=== PATIENT | female | born 1995 | race Caucasian/White ===

== ENCOUNTER 2017-06-13 06:35 | Day surgery (SDC) | payer OTHER ==
[2017-06-13] MEDS ORDERED: LIDOCAINE 1% 2 ML INJ ONE (07:02)
[2017-06-13 07:10] VITALS: PULSE 84
[2017-06-13] MEDS ORDERED: LIDOCAINE 1% 2 ML INJ ID PRN (07:34)
[2017-06-13] MEDS ORDERED: LR 1,000 ML IV ONE (07:34)
[2017-06-13] MEDS ORDERED: LIDOCAINE 1% 300 MG/30 ML SDV ONE (08:20)
--- NOTE | 2017-06-13 08:20 | PDANEPAE ---
ANE History of Present Illness hymenectomy ANE Past Medical History - Cardiovascular History Hx Hypertension: No Hx Arrhythmias: No Hx Chest Pain: No Hx Coronary Artery / Peripheral Vascular Disease: No Hx CHF / Valvular Disease: No Hx Palpitations: No Cardiovascular History Comment: occ "HR goes up when exercising, and won't come done" PCP aware - Pulmonary History Hx COPD: No Hx Asthma/Reactive Airway Disease: No Hx Recent Upper Respiratory Infection: No Hx Oxygen in Use at Home: No Hx Sleep Apnea: No Sleep Apnea Screening Result - Last Documented: Negative - Neurologic History Hx Cerebrovascular Accident: No Hx Seizures: No Hx Dementia: No - Endocrine History Hx Diabetes: No - Renal History Hx Renal Disorders: Yes Renal History Comment: "small bladder" - Liver History Hx Hepatic Disorders: No - Neurological & Psychiatric Hx Hx Neurological and Psychiatric Disorders: No - Cancer History Hx Cancer: No - Congenital Disorder History Hx Congenital Disorders: No - GI History Hx Gastrointestinal Disorders: No Gastrointestinal History Comment: dairy and gluten free diet - Other Health History Other Health History: "small opening to vagina" - Chronic Pain History Chronic Pain: No - Surgical History Prior Surgeries: growth tongue excised 2012 ANE Review of Systems Review of Systems: - Exercise capacity METS (RN): 4 METS ANE Patient History - Allergies Allergies/Adverse Reactions: gluten Allergy (Verified 05/21/17 14:06) Other-Enter Comments Milk Containing Products [dairy] Allergy (Verified 05/21/17 14:06) Other-Enter Comments - Home Medications Home Medications: NK [No Known Home Meds] 05/21/17 [Last Taken Unknown] - NPO status NPO Since - Liquids (Date): 06/12/17 NPO Since - Liquids (Time): 22:00 NPO Since - Solids (Date): 06/12/17 NPO Since - Solids (Time): 22:00 - Anes Hx Anes Hx: no prior problems - Smoking Hx Smoking Status: Never smoked - Alcohol Use Alcohol Use: Occasionally - Family Anes Hx Family Anes Hx: none ANE Labs/Vital Signs - Vital Signs Blood Pressure: 120/87 Heart Rate: 84 Respiratory Rate: 16 O2 Sat (%): 98 Height: 157.48 cm Weight: 49.895 kg ANE Physical Exam - Airway Neck exam: FROM Mallampati Score: Class 1 Mouth exam: normal dental/mouth exam - Pulmonary Pulmonary: clear to auscultation - Cardiovascular Cardiovascular: regular rate and rhythym - ASA Status ASA Status: I ANE Anesthesia Plan Anesthesia Plan: GA w LMA
[2017-06-13] MEDS ORDERED: MIDAZOLAM 2 MG/2 ML VIAL IVP ONE (08:21)
--- NOTE | 2017-06-13 08:26 | PDHPUP ---
History & Physical Update H&P update statement: This history and physical update is based on an assessment of the patient which was completed after admission or registration (within 24 hours), but prior to the surgery/procedure.
[2017-06-13] MEDS ORDERED: fentaNYL 100 MCG/2 ML INJ ONE (08:28)
[2017-06-13] MEDS ORDERED: PROPOFOL 200 MG/20 ML VIAL ONE (08:29)
[2017-06-13] MEDS ORDERED: DEXAMETHASONE 4 MG/ML VIAL ONE (08:29)
[2017-06-13] MEDS ORDERED: ONDANSETRON 4 MG/2 ML VIAL ONE (08:50)
[2017-06-13] MEDS ORDERED: KETOROLAC 30 MG/1 ML SDV ONE (08:55)
[2017-06-13] MEDS ORDERED: HYDROCODONE/APAP 5/325 TAB PO PRN (08:59)
[2017-06-13] MEDS ORDERED: OXYCODONE/APAP 5/325 TAB PO PRN (08:59)
[2017-06-13] MEDS ORDERED: ACETAMINOPHEN 500 MG TAB PO PRN (08:59)
[2017-06-13] MEDS ORDERED: fentaNYL 100 MCG/2 ML INJ IVP PRN (08:59)
[2017-06-13] MEDS ORDERED: NALOXONE HCL 0.4 MG/ML INJ IVP PRN (08:59)
[2017-06-13 09:44] VITALS: RESP 18; TEMP 97.7
--- NOTE | 2017-06-13 09:54 | POSTOPPROG ---
Post Op Note Date of Operation: 06/13/17 Surgeon: Keena Acharya Anesthesiologist: Kenrick Chang Anesthesia: LMA Pre-op Diagnosis: imperforate hymen Post-op Diagnosis: same Procedure: hymenectomy Findings: very narrow opening into vagina Inf/Abcess present in the surg proc area at time of surgery?: No EBL: Minimal
[2017-06-13 10:13] VITALS: BP 102/50; O2SAT 96
--- NOTE | 2017-06-13 10:40 | GOP ---
[f rep st] OPERATIVE REPORT DATE OF OPERATION: 06/13/2017 SURGEON: Keena Acharya MD ANESTHESIA: General with LMA. ANESTHESIOLOGIST: Kenrick Chang MD PREOPERATIVE DIAGNOSIS: Imperforate hymen. POSTOPERATIVE DIAGNOSIS: Imperforate hymen. PROCEDURE PERFORMED: Hymenectomy. FINDINGS: Again, a very narrow introital opening at about 12 o'clock near the urethra and, with open ing of the hymen, there was quite a bit of vaginal drainage and otherwise normal vagina and normal ap pearing cervix. ESTIMATED BLOOD LOSS: Minimal. INDICATIONS: Patient is a 21-year-old who has never been sexually active or attempted sexual activit y but has always had trouble being able to place a tampon. On exam in December of 2016, noted to have a v tony tiny opening to the hymen, probably about 3 x 4 mm and otherwise full thickness hymen across the introitus. The patient desires definitive treatment for this.. DESCRIPTION OF PROCEDURE: With informed consent signed, patient taken to the operating room, placed under general anesthesia with LMA, placed in a low dorsal lithotomy position and bladder previously e mptied. Prep of the external genitalia only, and then the hymenal area and introitus were injected w ith about 10 cc of 1% lidocaine with epi and then I was able to place my pinky into the introitus a l ittle bit just for identification of landmarks, and a scalpel was used to resect the hymen from appro ximately 2 o'[address] all the way around to 10 o'clock and then this was grasped with the [place] and the rest of the tissue resected with a scalpel. There was noted some sort of an anterior septum near th e urethra and that was resected as well until the introitus was completely open. Speculum then place d and cervix visualized and then a catheter was placed into the urethra so that, with repairing where the hymen was excised, there would be no injury to the urethra. Interrupted 4-0 Monocryl sutures wer e placed throughout where the hymen had been excised starting at [address] way over to 10 o'c lock and then she had 2 or 3 anterior sutures placed to tack together the vaginal tissue. Once it wa s felt that hemostasis was noted, the catheter was removed and the patient was placed in the supine p osition, awakened in the operating room, taken to recovery room in stable condition. Tolerated proce dure well. /[id number]/MODL
--- NOTE | 2017-06-14 08:56 | POSTANESTH ---
Post Anesthetic Evaluation Cardiovascular Status: Normal, Stable Respiratory Status: Normal, Stable Level of Consciousness/Mental Status: Can Participate in Eval Pain Control: Adequate, Prn Tx Ordered Nausea/Vomiting Control: Adequate, Prn Tx Ordered Complications Possibly Related to Anesthesia: None Noted
== END 2017-06-13 10:25 | disposition home or self-care (01) ==
LOC: FSGY 06:35
PROVIDERS: ATTEND Obstetrics & Gynecology Gynecology
PROC: 0UBK7ZZ Excision of Hymen, Via Natural or Artificial Opening (ICD-10-PCS; principal; 2017-06-13 08:30)
DX: Q52.3 Imperforate hymen (principal)
CPT/HCPCS: J0171; J1100; J1885; J2250; J2405; J2704; J3010